=== PATIENT | male | born 1995 | race Two or more races ===

== ENCOUNTER 2020-11-24 10:41 | Emergency (ER) | payer MEDICAID ==
[~2020-11-24] VITALS: Ht 165.1 cm; Wt 78.0 kg
[2020-11-24] MEDS ORDERED: ACETAMINOPHEN 325MG TABLET PO STA (11:27)
[2020-11-24] MEDS ORDERED: IBUP-2029 PO (12:45)
[2020-11-24 13:00] VITALS: BP 144/95
== END 2020-11-24 13:22 | disposition home or self-care (01) ==
LOC: ER 10:41
DX: M25.531 Pain in right wrist (principal)
CPT/HCPCS: 29125; 73110; 99283